=== PATIENT | male | born 2000 | race African-American/Black ===

== ENCOUNTER 2021-12-17 13:57 | Emergency (ER) | payer BC, SELFPAY ==
[2021-12-17 14:08] VITALS: BP 147/98; PULSE 85; RESP 18; TEMP 36.7; O2SAT 100
--- NOTE | 2021-12-17 14:10 | ED.URI ---
HPI - URI/Sore Throat General Chief Complaint: Upper Respiratory Infection Stated Complaint: Sore throat, congestion, cough Source: patient Mode of arrival: ambulatory Limitations: no limitations History of Present Illness HPI Narrative: 20-year-old male presenting for complaint of sinus congestion, headache, body ache, fever and chills and nonproductive cough for 4 days. Endorses history of asthma and has been using his inhaler prn. Endorses occasional wheezing, nausea. Endorses sick contacts covid positive. He has had the COVID-vaccine, needs a booster. He has been taking DayQuil for symptoms. MD elicited complaint: cough Related Data Home Medications Medication Instructions Recorded Confirmed albuterol sulfate 0.63 mg INHALATION PRN PRN 12/17/21 12/17/21 Allergies Allergy/AdvReac Type Severity Reaction Status Date / Time No Known Allergies Allergy Verified 12/17/21 14:10 Review of Systems Review of Systems: CONSTITUTIONAL: Endorses malaise, chills, sweats, fever. EYES: Denies visual changes, redness, or discharge. ENT: Reports rhinorrhea, congestion, sinus pain and sore throat; Denies otalgia CARDIOVASCULAR: Denies chest pain, palpitations, or edema. RESPIRATORY: Reports cough, post nasal drainage. Denies dyspnea. GASTROINTESTINAL: Denies abdominal pain, vomiting, diarrhea SKIN: Denies rash or itching. MUSCULOSKELETAL: Endorses myalgia. NEUROLOGIC: Denies headache. Exam Narrative: GENERAL: Ill-appearing, nontoxic no acute distress. HEAD: Normocephalic EYES: PERRLA, conjunctivae clear ENT: Mucous membranes moist. TM pearly [place] with dull light reflex bilaterally; no tragal tenderness. NECK: Supple. No lymphadenopathy CHEST: Clear to auscultation, breath sounds equal. No wheezing, rhonchi, rales, or stridor. No respiratory distress, speaks in full sentences. HEART: Regular rate and rhythm. No murmur heard. SKIN: Warm, dry, no rash. NEURO: Alert and oriented x3. PSYCH: Normal mood and affect Course Course Emergency Course: covid positive Patient is aware of diagnosis, understands and agrees to treatment plan. Anticipatory guidance given. Patient agrees to follow-up as directed and is aware of reasons to seek care at the emergency department. Portions of this record may have been created with voice recognition software Level of Care: Express Care Visit Vital Signs Vital signs: reviewed MDM - URI/Sore Throat Differential Diagnosis Differential diagnosis: Likely upper respiratory infection and viral infection Discharge Plan Discharge Clinical Impression: COVID-19 Patient Disposition: Home, Self-Care Condition: Stable Instructions: Antibiotic Form, COVID-19 (Coronavirus Disease 2019) (ED) Additional Instructions: Your rapid COVID test was positive today. The following recommendations have been made by the CDC and local Health Departments, regarding COVID-19: -Those individuals with mild cases of COVID-19 can generally be discontinued from isolation 5 days AFTER the onset of symptoms AND the resolution of fever for 24hrs (without the use of fever-reducing medications)* Rest, stay hydrated. Tylenol, Flonase/nasal spray, Zyrtec, cough syrup cold/flu medications for symptoms as needed Use your inhaler every 4-6 hours as needed Follow up with your primary care provider as needed in 1-2 weeks Prescriptions: No Action albuterol sulfate 0.63 mg/3 mL Solution For Nebulization 0.63 mg inhalation PRN PRN (Reason: Shortness Of Breath) RF: 0 Follow-up/Referrals: Brown Werner, MECHANICAL MAINTENANCE ENGINEER [Primary Care Provider] - Stand Alone Forms: Work/School Release IP Time of Disposition: 14:25
[2021-12-17 14:22] VITALS: BP 147/98; PULSE 85; RESP 18; TEMP 36.7; O2SAT 100
== END 2021-12-17 14:30 | disposition home or self-care (01) ==
PROVIDERS: Emergency Provider Nurse Practitioner Family
DX: U07.1 COVID-19 (principal)
CPT/HCPCS: 87426; 99213; C9803; G0463

== ENCOUNTER 2022-09-26 01:26 | Observation (INO) | payer BC, SELFPAY ==
[2022-09-26] VITALS (36 sets, daily range): BP systolic 113–160; BP diastolic 58–112; PULSE 81–147; RESP 15–429; TEMP 35.8–36.1; O2SAT 93–100; BMI 28.8; BMI 20.7
--- NOTE | ~2022-09-26 | XR_ITS ---
EXAMINATION: XR chest 1V portable DATE: 09/26/2022 06:34 INDICATION: Shortness of breath. Allergic reaction. TECHNIQUE: AP view of the chest was obtained. COMPARISON: None FINDINGS: The lungs are clear with no focal airspace opacities, pulmonary edema, pleural effusion or pneumothor ax. The cardiomediastinal silhouette is normal. Peripheral IV at the left antecubital fossa. Visualiz ed bones and soft tissues are unremarkable. IMPRESSION: 1. No acute cardiopulmonary disease. Reviewed, dictated and finalized at location A.
[2022-09-26] MEDS: diphenhydrAMINE HCl INJ 50 MG/ML VIAL 25 MG IV PUSH ×2 (01:42→04:46)
[2022-09-26] MEDS: EPINEPHrine HCL INJ 1 MG/ML AMPUL 0.3 MG IM ×2 (01:43→02:42)
[2022-09-26] MEDS: FAMOTIDINE 20 MG/2 ML VIAL IV PUSH (01:43)
[2022-09-26] MEDS: methylPREDNISolone SOD SUCC 125 MG VIAL IV PUSH (01:43)
[2022-09-26] MEDS: IPRATROPIUM BR 0.02% INH SOLN 0.5 MG/2.5 ML VIAL INHALATION ×4 (01:50→14:08)
[2022-09-26] MEDS: ALBUTEROL SULFATE NEB 2.5 MG/3 ML INH 5 MG INHALATION ×2 (01:50→04:53)
[2022-09-26] MEDS: LORazepam INJ (*CRX) 2 MG/ML VIAL 1 MG IV PUSH (02:20)
[2022-09-26] MEDS: MAGNESIUM SULF 2 GM/WATER 50ML 2 GM/50 ML BAG IVPB (02:28)
[2022-09-26] MEDS: ALBUTEROL SULFATE NEB 2.5 MG/3 ML INH 10 MG (02:39)
[2022-09-26] MEDS: IPRATROPIUM BR 0.02% INH SOLN 0.5 MG/2.5 ML VIAL 1.5 MG (02:39)
[2022-09-26] MEDS: ONDANSETRON INJ 4 MG/2 ML VIAL IV PUSH (03:39)
--- NOTE | 2022-09-26 03:39 | ED.GENADULT ---
HPI - General Adult General Chief complaint: Allergic Reaction Stated complaint: allergic reaction Time Seen by Provider: 09/26/22 01:38 History of Present Illness HPI narrative: Patient 21-year-old gentleman who presents the emergency department with chief complaint of shortness of breath. Patient reports that he has history of a peanut allergy and reports that this evening he accidentally ate some peanut butter with hot chips. Patient reports that he has had anaphylactic reactions before in the past due to peanuts and feels extremely short of breath and reports that he is wheezing. Related Data Home Medications Medication Instructions Recorded Confirmed albuterol sulfate 0.63 mg/3 mL 0.63 mg inhalation PRN PRN 12/17/21 12/17/21 solution for nebulization Shortness Of Breath Allergies Allergy/AdvReac Type Severity Reaction Status Date / Time peanut Allergy Swelling Verified 09/26/22 01:45 of Lip/Tongue/Throat Review of Systems Review of Systems: A 10 system review of systems was completed on the patient and is negative except for what is stated in the HPI. Nursing and ancillary documentation was reviewed. [facility] Social History Social History Smoking status: Never smoker Alcohol intake: never Substance use: never Additional occupation/education comments: [employer] Gender identity (if verbalized by the patient): Male Sexual Orientation (if Verbalized by the Patient): Straight or Heterosexual Exam Narrative: GENERAL: Appears in moderate distress. HEAD: Normocephalic, atraumatic. EYES: PERRLA and EOMI. ENT: Nares clear, no rhinorrhea or epistaxis. Mucous membranes moist. NECK: Supple. CHEST: Shallow respirations wheezing present poor air movement and moderate respiratory distress HEART: Regular rate and rhythm. No murmur heard. Normal peripheral pulses. ABDOMEN: Soft, nontender, nondistended, normal active bowel sounds. EXTREMITIES: Normal range of motion. No edema. SKIN: Warm, dry, no rash. NEURO: No focal deficits. Alert and oriented x3. PSYCH: Normal mood and affect. Course Vital Signs Vital signs: Vital Signs Temperature 35.8 C L 09/26/22 01:31 Pulse Rate 108 H 09/26/22 01:31 Respiratory Rate 18 09/26/22 01:31 Blood Pressure 144/97 H 09/26/22 01:31 Pulse Oximetry 100 10/27/22 01:31 Temperature 35.8 C L 09/26/22 01:31 Pulse Rate 112 H 09/26/22 05:45 Respiratory Rate 26 H 09/26/22 05:45 Blood Pressure 121/75 09/26/22 05:45 Pulse Oximetry 98 09/26/22 05:45 Oxygen Delivery BiPAP 09/26/22 03:10 Oxygen Flow Rate 6 09/26/22 01:54 Medical Decision Making Vital Signs Vital Signs: Vital Signs Temperature 35.8 C L 09/26/22 01:31 Pulse Rate 108 H 09/26/22 01:31 Respiratory Rate 18 09/26/22 01:31 Blood Pressure 144/97 H 09/26/22 01:31 Pulse Oximetry 100 09/26/22 01:31 Temperature 35.8 C L 09/26/22 01:31 Pulse Rate 112 H 09/26/22 05:45 Respiratory Rate 26 H 09/26/22 05:45 Blood Pressure 121/75 09/26/22 05:45 Pulse Oximetry 98 09/26/22 05:45 Oxygen Delivery BiPAP 09/26/22 03:10 Oxygen Flow Rate 6 09/26/22 01:54 Lab Data Result diagrams: 09/26/22 05:06 09/26/22 05:06 Labs: Lab Results 09/26/22 09/26/22 Range/Units 05:06 05:06 WBC 9.6 (4.5-10.0) K/mm3 RBC 5.32 (4.6-6.20) M/mm3 Hgb 15.1 (14.0-18.0) g/dL Hct 46.4 (42.0-52.0) % MCV 87.2 (80-100) fl MCH 28.4 (26-34) pg MCHC 32.5 (32-36) g/dl RDW 12.6 (11.5-14.5) % Plt Count 328 (150-375) k/mm3 MPV 12.1 H (7.4-10.4) fl Immature Gran % (Auto) 0.2 (0-0.5) % Neut % (Auto) 43.4 L (45.5-73.1) % Lymph % (Auto) 50.2 H (18.3-44.2) % [place] % (Auto) 5.2 (2.6-8.5) % Eos % (Auto) 0.7 (0-4.4) % Baso % (Auto) 0.3 (0.2-1.2) % Lymph # (Auto) 4.83 H (0.9-3.2) K/mm3 [place] # (Auto) 0.5 (0.1-0.6)
[2022-09-26 05:19] LABS: Basophils Percent Auto 0.3 % (0.2-1.2); Eosinophils Absolute Auto 0.1 K/mm3 (0-0.3); Eosinophils Percent Auto 0.7 % (0-4.4); Hematocrit 46.4 % (42.0-52.0); Hemoglobin 15.1 g/dL (14.0-18.0); Immature Granulocyte Absolute 0.02 K/mm3 (0.00-0.031); Immature Granulocyte Percent A 0.2 % (0-0.5); Lymphocytes Absolute Auto 4.83 K/mm3 (0.9-3.2); Lymphocytes Percent Auto 50.2 % (18.3-44.2); Mean Corpuscular HGB Conc 32.5 g/dl (32-36); Mean Corpuscular Hemoglobin 28.4 pg (26-34); Mean Corpuscular Volume 87.2 fl (80-100); Mean Platelet Volume 12.1 fl (7.4-10.4); Monocytes Absolute Auto 0.5 K/mm3 (0.1-0.6); Monocytes Percent Auto 5.2 % (2.6-8.5); Neutrophils Absolute Auto 4.2 K/mm3 (1.3-6.7); Neutrophils Percent Auto 43.4 % (45.5-73.1); Platelet Count Result 328 k/mm3 (150-375); Red Blood Count 5.32 M/mm3 (4.6-6.20); Red Cell Distribution Width 12.6 % (11.5-14.5); White Blood Count 9.6 K/mm3 (4.5-10.0)
[2022-09-26 05:30] LABS: Alanine Aminotransferase 16 U/L (6-50); Albumin Level 4.8 g/dL (3.5-5.1); Alkaline Phosphatase 82 U/L (38-126); Anion Gap 16 mmol/L (8-16); Aspartate Amino Transferase 30 U/L (17-59); Bilirubin,Total 0.8 mg/dL (0.2-1.3); Blood Urea Nitrogen 13 mg/dL (9-20); Calcium 9.5 mg/dL (8.4-10.2); Carbon Dioxide 25 mmol/L (22-30); Chloride 99 mmol/L (98-107); Estimated CRCL calculation 93 ml/min; Estimated Glomerular Filt Rate > 60; Glucose 78 mg/dL (65-110); Potassium 3.3 mmol/L (3.4-5.0); Sodium 140 mmol/L (137-145)
--- NOTE | 2022-09-26 06:02 | PM.IMHP ---
H&P: HPI History of Present Illness Date/Time: 09/26/22 06:02 Chief Complaint: 21 years old male with past medical history of asthma peanut allergy has anaphylactic reaction in the past presented to the hospital with shortness of breath started today sudden onset aggravated with activity associated with wheeze patient accidentally had peanut butter with chips start having shortness of breath and wheezing denies difficulty of swallowing denies swollen lips or tongue at the ER patient was found to have acute hypoxemic respiratory failure associated with asthma exacerbation and most likely anaphylactic reaction required BiPAP for short period of time given epinephrine steroid nebulizer treatment patient continued to have tachycardia and required 2 L of oxygen decision was made to admit the patient Review of Systems Review of Systems: Twelve system review was done was negative except above PMFSH Social History Social History Smoking status: Never smoker Alcohol intake: never Substance use: never Additional occupation/education comments: [employer] Gender identity (if verbalized by the patient): Male Sexual Orientation (if Verbalized by the Patient): Straight or Heterosexual Meds Home Medications and Allergies Home Medications Medication Instructions Recorded Confirmed Type albuterol sulfate 0.63 mg/3 mL 0.63 mg inhalation PRN PRN 12/17/21 12/17/21 History solution for nebulization Shortness Of Breath budesonide-formoterol HFA 80 1 puff inhalation Q12H #10.2 grams 07/02/22 07/02/22 Rx mcg-4.5 mcg/actuation aerosol inhaler (Symbicort) Allergies Allergy/AdvReac Type Severity Reaction Status Date / Time peanut Allergy Swelling Verified 09/26/22 01:45 of Lip/Tongue/Throat Vital Signs Vital Signs - 24 hr 09/26/22 01:31 09/26/22 01:37 09/26/22 01:54 Temperature 96.5 F L Pulse Rate 108 H 146 H Respiratory Rate 18 26 H 23 H Blood Pressure 144/97 H Pulse Oximetry 100 97 99 Oxygen Delivery Oxygen Flow Rate 6 09/26/22 01:51 09/26/22 02:00 09/26/22 02:05 Temperature Pulse Rate 124 H 131 H 131 H Respiratory Rate 15 15 15 Blood Pressure Pulse Oximetry 100 Oxygen Delivery BiPAP Oxygen Flow Rate 09/26/22 02:10 09/26/22 03:09 09/26/22 03:10 Temperature Pulse Rate 131 H 127 H 127 H Respiratory Rate 15 26 H 429 H Blood Pressure Pulse Oximetry 100 Oxygen Delivery BiPAP Oxygen Flow Rate 09/26/22 01:47 09/26/22 02:25 09/26/22 02:00 Temperature Pulse Rate 130 H 135 H Respiratory Rate 15 24 H 20 Blood Pressure Pulse Oximetry 94 99 Oxygen Delivery Oxygen Flow Rate 09/26/22 02:22 09/26/22 02:30 09/26/22 02:39 Temperature Pulse Rate 129 H 125 H 124 H Respiratory Rate 23 H 20 25 H Blood Pressure 160/112 H Pulse Oximetry 100 100 100 Oxygen Delivery Oxygen Flow Rate 09/26/22 02:40 09/26/22 04:57 09/26/22 05:16 Temperature Pulse Rate 119 H 131 H 120 H Respiratory Rate 25 H 20 20 Blood Pressure Pulse Oximetry 100 Oxygen Delivery Oxygen Flow Rate Exam Narrative: GENERAL: Well appearing, well-nourished, non-toxic, in no acute distress. HEAD: Normocephalic, atraumatic. NECK: Supple. No adenopathy, no masses. RESPIRATORY: Scattered wheeze. CARDIOVASCULAR: Regular rate and rhythm without murmurs, rubs, or gallops. Peripheral pulses 2+ and equal bilaterally. ABDOMINAL: Soft, nontender, nondistended, no hepatosplenomegaly. Normoactive BS. MUSCULOSKELETAL: Moves all extremities. Strength/ROM intact without gross deformities or TTP. No edema. No calf tenderness. No chest wall tenderness palpation. SKIN: Warm, dry, normal color. No rashes. NEURO: A&O X3. Speech clear. Cranial nerves II-XII grossly intact. Steady gait. No ataxic movements. PSYCHIATRIC: Appropriate mood and affect. Normal interaction. H&P: Results Labs Labs: Short
[2022-09-26] MEDS: methylPREDNISolone SOD SUCC 40 MG VIAL IV PUSH ×2 (06:33→15:35)
[2022-09-26] MEDS: SODIUM CHLORIDE 0.9% IV 1,000 ML 100 ML IV CONT (06:33)
--- NOTE | 2022-09-26 07:09 | PC.NURSE ---
Report given to IAN Puckett at this time.
[2022-09-26] MEDS: ALBUTEROL SULFATE NEB 2.5 MG/3 ML INH INHALATION (09:35)
[2022-09-26] MEDS: ACETAMINOPHEN 325 MG TABLET 650 MG PO (13:39)
--- NOTE | 2022-09-26 15:57 | ADMGEN ---
This patient, Tom Spicer, was admitted to IMU Room 201-01. Patient/family oriented to hospital policies and general routines including ID bracelet, bed and alarms, visiting hours, pain management, procedures, bathroom and other care routines, personal items, smoking policy, room service/diet, and visiting hours. Information on how to activate the Rapid Response Team has been discussed. Patient/Family are encouraged to report perceived risks to care and to ask questions if they do not understand what they are told or what they should do.
--- NOTE | 2022-09-26 16:11 | PM.DS ---
DS: Admitting Diagnosis Discharge Date September 26, 2022 Admitting Diagnosis SOB DS: Discharge Diagnosis Discharge Diagnosis (1) Asthma, moderate persistent: Qualifiers: Asthma complication type: uncomplicated Qualified Code(s): J45.40 - Moderate persistent asthma, uncomplicated Code(s): J45.40 - Moderate persistent asthma, uncomplicated Status: Acute Assessment and Plan: Associated with acute exacerbation secondary to peanut allergy IV steroid nebulizer treatment no need for antibiotics (2) Food allergy, peanut: Code(s): Z91.010 - Allergy to peanuts Status: Acute Assessment and Plan: Monitor closely Steroid Benadryl avoid peanut (3) Acute hypoxemic respiratory failure: Code(s): J96.01 - Acute respiratory failure with hypoxia Status: Acute Assessment and Plan: Status post BiPAP currently on 2 L Oxygen IV Solu-Medrol nebulizer treatment Will get chest x-ray DS: Summary Hospital Course Hospital Course: 21 years old male with past medical history of asthma peanut allergy has anaphylactic reaction in the past presented to the hospital with shortness of breath started today sudden onset aggravated with activity associated with wheeze patient accidentally had peanut butter with chips start having shortness of breath and wheezing denies difficulty of swallowing denies swollen lips or tongue at the ER patient was found to have acute hypoxemic respiratory failure associated with asthma exacerbation and most likely anaphylactic reaction required BiPAP for short period of time given epinephrine steroid nebulizer treatment patient continued to have tachycardia and required 2 L of oxygen decision was made to admit the patient. All symptoms resolved and patient was discharged in good condition with close outpatient follow-up and an EpiPen. Time Spent with Patient Time attestation: Total time spent providing and/or coordinating discharge services: DS: Data Data Completed and Pending Labs on day of discharge: Labs from last 24 hours 09/26/22 09/26/22 05:06 05:06 WBC 9.6 RBC 5.32 Hgb 15.1 Hct 46.4 MCV 87.2 MCH 28.4 MCHC 32.5 RDW 12.6 Plt Count 328 MPV 12.1 H Immature Gran % (Auto) 0.2 Neut % (Auto) 43.4 L Lymph % (Auto) 50.2 H [place] % (Auto) 5.2 Eos % (Auto) 0.7 Baso % (Auto) 0.3 Lymph # (Auto) 4.83 H [place] # (Auto) 0.5 Eos # (Auto) 0.1 Baso # (Auto) 0.0 Abs Immat Gran (auto) 0.02 Absolute Neuts (auto) 4.2 Absolute Nucleated RBC 0.0 Nucleated RBC % 0.0 Sodium 140 Potassium 3.3 L Chloride 99 Carbon Dioxide 25 Anion Gap 16 BUN 13 Creatinine 1.00 Estim Creat Clear Calc 93 Estimated GFR > 60 Glucose 78 Calcium 9.5 Total Bilirubin 0.8 AST 30 ALT 16 Alkaline Phosphatase 82 Total Protein 8.0 Albumin 4.8 Discharge Plan Discharge Attending physician on discharge: Gladis Luis Consulting providers: Ajith Del Rio Discharging Clinician: Gladis Luis Patient Disposition: Home, Self-Care Activity: as tolerated Diet: as tolerated Patient Instructions: Antibiotic Form, Epinephrine (By injection), Anaphylaxis (DC) Stand Alone Forms: General Discharge Information Follow-up/Referrals: Italo Diaz, DO [Primary Care Provider] - Discharge Medications: New epinephrine 0.3 mg/0.3 mL auto-injector 0.3 mg IM Q4H PRN (Reason: anaphylaxis) Qty: 2 0RF prednisone 50 mg tablet 50 mg PO DAILY 3 Days Qty: 3 0RF Continued albuterol sulfate 0.63 mg/3 mL Solution For Nebulization 0.63 mg inhalation PRN PRN (Reason: Shortness Of Breath) albuterol sulfate 90 mcg/actuation HFA aerosol inhaler 1 puff INHALATION PRN No Action budesonide-formoterol [Symbicort] 80-4.5 mcg/actuation HFA aerosol inhaler 1 puff inhalation Q12H Qty: 10.2 0RF Date of admission: 09/26/22 06:01 Primary Care Provider: Italo Diaz Ad
== END 2022-09-26 17:13 | disposition home or self-care (01) ==
LOC: ANHED 03:23 → ANHIMU 08:19
PROVIDERS: Admitting Provider Internal Medicine; Emergency Provider Emergency Medicine; PCP Family Medicine; Visit Provider Student in an Organized Health Care Education/Training Program
DX: J45.40 Moderate persistent asthma, uncomplicated (principal); Z91.010 Allergy to peanuts; J96.01 Acute respiratory failure with hypoxia; Z79.51 Long term (current) use of inhaled steroids
CPT/HCPCS: 36415; 71045; 80053; 85025; 94002; 94640; 96361; 96372; 96374; 96375; 96376; 99285; A9270; G0378; J0171; J1200; J2060; J2405; J2920; J2930; J3475; J7030